=== PATIENT | female | born 1945 | race Caucasian/White ===

== ENCOUNTER 2025-06-16 17:20 | Inpatient (IN) | payer MEDICARE, OTHER ==
[~2025-06-16] VITALS: Ht 154.9 cm; Wt 50.8 kg
[2025-06-16] MEDS ORDERED: MAG355OR18 PO (17:45)
[2025-06-16] MEDS ORDERED: ACET-2154 PO (17:45)
[2025-06-16] MEDS ORDERED: CHOL10005 PO (17:45)
[2025-06-16] MEDS ORDERED: LORA0.5T48 PO (17:45)
[2025-06-16] MEDS ORDERED: MAGN400O6 PO (17:45)
[2025-06-16] MEDS ORDERED: MULT1CAP44 PO (17:45)
[2025-06-16] MEDS ORDERED: QUET25TA PO (17:45)
[2025-06-16] MEDS ORDERED: MIRT7.5T10 PO (17:45)
[2025-06-16] MEDS ORDERED: METH-806 PO (17:45)
[2025-06-16] MEDS ORDERED: GABA100C PO (17:45)
[2025-06-16] MEDS ORDERED: TEMA15CA PO (17:45)
[2025-06-16] MEDS ORDERED: MEMA1TAB PO (17:45)
[2025-06-16] MEDS ORDERED: OXCA150T13 PO (17:45)
[2025-06-16] MEDS ORDERED: ASCO500C18 PO (17:45)
[2025-06-16] MEDS ORDERED: TOFA11TA PO (17:45)
[2025-06-16 18:00] LABS: PLATELET COUNT (AUTO) 252 K/uL (179-408); RED BLOOD CELL COUNT(AUTO) 3.70 MIL/uL (3.63-4.92); RED CELL DISTRIBUTION WIDTH 14.3 % (12.3-17.7); WHITE BLOOD COUNT (AUTO) 4.4 K/uL (3.8-11.8)
[2025-06-16 18:16] LABS: ASPARTATE AMINOTRANSFERASE 22 U/L (15-37); CREATININE 0.9 mg/dL (0.6-1.3); SODIUM SERUM 140 mmol/L (136-145); TOTAL PROTEIN, SERUM 8.2 g/dL (6.4-8.2); UREA NITROGEN, BLOOD 18 mg/dL (7-18)
[2025-06-16 18:21] LABS: ETHANOL < 3 MG/DL (0-10)
[2025-06-16 18:58] LABS: *BILIRUBIN,URIN NEGATIVE (NEGATIVE); *BLOOD, URINE 1+ (NEGATIVE); *CLARITY,URINE CLEAR (CLEAR); *COLOR,URINE YELLOW (YELLOW); *KETONES,URINE NEGATIVE (NEGATIVE); *PROTEIN,URINE NEGATIVE (NEGATIVE); *UROBILINOGEN,URINE 0.2 E.U./dl (NORMAL); LEUKOCYTE ESTERASE ,URINE NEGATIVE (NEGATIVE); NITRITE, URINE NEGATIVE (NEGATIVE); UGLUCOSE NEGATIVE (NEGATIVE)
[2025-06-16 19:11] LABS: *AMPHETAMINE, URINE NEGATIVE (NEGATIVE); *BARBITURATE, URINE NEGATIVE (NEGATIVE); *BENZODIAZEPINE, URINE NEGATIVE (NEGATIVE); *CANNABINOID, URINE NEGATIVE (NEGATIVE); *COCCAINE, URINE NEGATIVE (NEGATIVE); *OPIATE, URINE NEGATIVE (NEGATIVE); *PHENCYCLIDINE SCREEN,URINE NEGATIVE (NEGATIVE); FENTANYL, URINE NEGATIVE (NEGATIVE)
[2025-06-16 19:38] VITALS: BP 112/66
[2025-06-16] MEDS ORDERED: MAG HYDROX/AL HYDROX/SIMETH 30 ML LIQUID UDC PO PRN (21:30)
[2025-06-16] MEDS ORDERED: MAGNESIUM HYDROXIDE 30 ML LIQUID UDC PO PRN (21:30)
[2025-06-16] MEDS ORDERED: ZOLPIDEM 5 MG TABLET PO PRN (21:30)
[2025-06-16] MEDS ORDERED: QUETIAPINE FUMARATE 25 MG TABLET PO PRN (21:30)
[2025-06-16] MEDS: QUETIAPINE FUMARATE 100 MG TABLET PO ONE (21:30)
[2025-06-17 08:37] VITALS: BP 137/69; TEMP 98
[2025-06-17] MEDS: OXCARBAZEPINE 150 MG TABLET PO SCH (09:49)
[2025-06-17] MEDS: METHOCARBAMOL 500 MG TABLET PO PRN (15:27)
[2025-06-17 16:30] VITALS: BP 111/52; TEMP 98
[2025-06-17] MEDS: MIRTAZAPINE 15 MG TABLET PO SCH (20:04)
[2025-06-17] MEDS: QUETIAPINE FUMARATE 25 MG TABLET PO SCH (20:04)
[2025-06-17 20:15] VITALS: BP 140/67; TEMP 97.7; O2SAT 99
[2025-06-18] MEDS: ASCORBIC ACID 500 MG TABLET PO SCH (08:17)
[2025-06-18] MEDS: CHOLECALCIFEROL 1,000 UNIT TABLET PO SCH (08:17)
[2025-06-18] MEDS: MULTIVITAMINS,THERAPEUTIC TABLET PO SCH (08:18)
[2025-06-18 08:47] VITALS: BP 127/72; TEMP 98
[2025-06-18] MEDS: DIVALPROEX 125 MG TABLET.DR PO SCH (16:18)
[2025-06-18 16:28] VITALS: BP 111/52; TEMP 98
[2025-06-18] MEDS: OLANZAPINE 2.5 MG TABLET PO SCH (20:04)
[2025-06-18 23:23] VITALS: BP 151/78; TEMP 97.8; O2SAT 96
[2025-06-19] MEDS: ENSURE ENLIVE (VAN) 240 ML LIQUID PO SCH (08:14)
[2025-06-19 08:27] VITALS: BP 155/62; TEMP 98
[2025-06-19] MEDS: DIVALPROEX 125 MG TABLET.DR PO SCH (14:24)
[2025-06-19 16:19] VITALS: BP 125/60; TEMP 98; O2SAT 97
[2025-06-19 19:48] VITALS: BP 145/66; TEMP 98.1; O2SAT 98
[2025-06-20] MEDS: ACETAMINOPHEN 325 MG TABLET PO PRN (02:10)
[2025-06-20] MEDS: ZOLPIDEM 5 MG TABLET PO PRN (02:10)
[2025-06-20 08:09] VITALS: BP 147/64; TEMP 97.6; O2SAT 98
[2025-06-20] MEDS: OLANZAPINE 2.5 MG TABLET PO SCH (09:57)
[2025-06-20] MEDS: DIVALPROEX 250 MG TABLET.DR PO SCH (10:24)
[2025-06-20] MEDS ORDERED: DIVALPROEX 125 MG TABLET.DR PO SCH (14:00)
[2025-06-20 16:04] VITALS: BP 147/79; TEMP 97.5; O2SAT 97
[2025-06-20 19:54] VITALS: BP 145/66; TEMP 97.9; O2SAT 96
[2025-06-21 08:15] VITALS: BP 157/71; TEMP 98; O2SAT 96
[2025-06-21 15:16] VITALS: BP 117/52; TEMP 98; O2SAT 96
[2025-06-21 20:00] VITALS: BP 105/70; TEMP 98; O2SAT 96
[2025-06-21] MEDS: OLANZAPINE 5 MG TABLET PO SCH (20:46)
[2025-06-22 09:12] VITALS: BP 111/89; TEMP 98; O2SAT 98
[2025-06-22] MEDS: OLANZAPINE 2.5 MG TABLET PO SCH (09:18)
[2025-06-22 15:06] VITALS: BP 117/61; TEMP 98; O2SAT 98
[2025-06-22 20:00] VITALS: BP 122/46; TEMP 98.1; O2SAT 97
[2025-06-22] MEDS: OLANZAPINE 5 MG TABLET PO SCH (20:39)
[2025-06-23 08:00] VITALS: BP 147/82; TEMP 97.7; O2SAT 95
[2025-06-23 15:57] VITALS: BP 119/73; TEMP 97.8; O2SAT 97
[2025-06-23 19:57] VITALS: BP 156/63; TEMP 97.7; O2SAT 95
[2025-06-23] MEDS: TOBRAMYCIN 0.3% OPHT DROP 5 ML BOTTLE EACHEYE SCH (20:16)
[2025-06-24 08:29] VITALS: BP 126/68; TEMP 98; O2SAT 98
[2025-06-24 16:14] VITALS: BP 117/55; TEMP 98; O2SAT 73
[2025-06-24 19:59] VITALS: BP 139/68; TEMP 97.6; O2SAT 98
[2025-06-25 08:16] VITALS: BP 128/68; TEMP 98; O2SAT 98
[2025-06-25] MEDS: ENSURE ENLIVE (VAN) 240 ML LIQUID PO SCH (12:48)
[2025-06-25] MEDS: CLONAZEPAM 0.5 MG TABLET PO SCH (13:56)
[2025-06-25 20:03] VITALS: BP 123/69; TEMP 98.2; O2SAT 98
[2025-06-26 08:35] VITALS: BP 123/61; TEMP 98; O2SAT 98
[2025-06-26] MEDS ORDERED: OLANZAPINE 2.5 MG TABLET PO SCH (09:00)
[2025-06-26] MEDS: OLANZAPINE 5 MG TABLET PO SCH (09:02)
[2025-06-26 16:56] VITALS: BP 122/68; TEMP 98; O2SAT 73
[2025-06-26] MEDS: ATORVASTATIN 20 MG TABLET PO SCH (20:47)
[2025-06-27 09:43] VITALS: BP 137/80; TEMP 97.9; O2SAT 100
[2025-06-27] MEDS: CLONAZEPAM 0.5 MG TABLET PO SCH (14:29)
[2025-06-27 16:12] VITALS: BP 129/79; TEMP 98.3; O2SAT 96
[2025-06-27 19:57] VITALS: BP 120/70; TEMP 98.1; O2SAT 98
[2025-06-28 07:57] VITALS: BP 123/66; TEMP 98; O2SAT 96
[2025-06-28] MEDS ORDERED: MISCELLANEOUS MED XX PRN (11:00)
[2025-06-28] MEDS: PERMETHRIN TP ONE (13:04)
[2025-06-28] MEDS: GABAPENTIN 100 MG CAPSULE PO SCH (13:58)
[2025-06-28 15:13] VITALS: BP 112/64; TEMP 98; O2SAT 100
[2025-06-28 20:00] VITALS: BP 143/81; TEMP 97.6; O2SAT 95
[2025-06-29 15:12] VITALS: BP 160/68; TEMP 98; O2SAT 96
[2025-06-29 20:00] VITALS: BP 132/84; TEMP 98.1; O2SAT 96
[2025-06-30 08:24] VITALS: BP 120/69; TEMP 98; O2SAT 98
[2025-06-30] MEDS ORDERED: ATOR20TA PO (11:25)
[2025-07-05] MEDS ORDERED: PERMETHRIN 5% CREAM 60 GM TUBE TP ONE (09:00)
== END 2025-06-30 15:15 | DRG 885 ==
LOC: ER 17:35 → GPS 20:16
PROVIDERS: ADMIT Psychiatry & Neurology Psychiatry
DX: F29 Unspecified psychosis not due to a substance or known physiological condition (principal); F01.52 Vascular dementia, unspecified severity, with psychotic disturbance; F32.A Depression, unspecified; F01.53 Vascular dementia, unspecified severity, with mood disturbance; F01.54 Vascular dementia, unspecified severity, with anxiety; E55.9 Vitamin D deficiency, unspecified; Z86.39 Personal history of other endocrine, nutritional and metabolic disease; R79.89 Other specified abnormal findings of blood chemistry; E78.5 Hyperlipidemia, unspecified
CPT/HCPCS: 36415; 71045; 80164; 83735; 84484; 85025; 93307; C1758; G0480; J3490